=== PATIENT | female | born 1955 | race Caucasian/White ===

== ENCOUNTER → 2021-04-22 | Outpatient (CLI) | payer MEDICARE, OTHER ==
[~2021-04-22] MED LIST: REGADENOSON 0.4 MG/5 ML DISP.SYRIN. IV ONE
--- NOTE | 2021-04-22 12:00 | CARD ---
MR#: [id number] Date of Study: 04/22/2021 Ordering Physician: SHELDON PALMA, Referring Physician: Khalif SANCHEZ: Sammy Kessler [facility] APPROVED REPORT EXAM: Two-dimensional and M-mode echocardiogram with Doppler and color Doppler. Other Information Quality : FairHR: 80bpm Rhythm : NSR INDICATION Elevated troponin, Severe COPD RISK FACTORS Smoking 2D DIMENSIONS Left Atrium(2D)3.2 (1.6-4.0cm)IVSd1.0 (0.7-1.1cm) Aortic Root(2D)2.9 (2.0-3.7cm)LVDd4.6 (3.9-5.9cm) LVOT Diameter2.1 (1.8-2.4cm)PWd1.0 (0.7-1.1cm) LVDs2.5 (2.5-4.0cm)FS (%) 9.1 % SV6.2 mlLVEF(%)21.1 (>50%) Aortic Valve AoV Peak Jose A.145.4cm/sAoV VTI28.0cm AO Peak GR.8.5mmHgLVOT Peak Jose A.128.1cm/s LVOT VTI 22.40cmAO Mean GR.5mmHg KEKE (VMAX)2.39yj1OYF (VTI)2.76cm2 Mitral Valve MV E Mtejwfcx55.0cm/sMV DECEL [id number] MV A Adajznyr68.0cm/sMV XYD04hb E/A Ratio0.7MVA (PHT)3.02cm2 TDI E/Lateral E'7.8E/Medial E'8.4 Pulmonary Valve PV Peak Iadyurzi666.7cm/sPV Peak Grad.5mmHg Tricuspid Valve TR P. Eixdgbwz910oc/sTR Peak Gr.32mmHg Pulmonary Vein S1 Gqptsoqk38.2cm/sD2 Szdnhwky11.0cm/s LEFT VENTRICLE The left ventricle is normal size. There is normal left ventricular wall thickness. The left ventricu lar systolic function is normal and the ejection fraction is within normal range. EF 65% There is nor mal LV segmental wall motion. Transmitral Doppler flow pattern is Grade I-abnormal relaxation pattern . No left ventricle thrombus noted on this study. There is no ventricular septal defect visualized. T here is no left ventricular aneurysm. There is no mass noted in the left ventricle. RIGHT VENTRICLE The right ventricle is normal size. There is normal right ventricular wall thickness. The right ventr icular systolic function is normal. ATRIA The left atrium is mildly dilated. The right atrium size is normal. The interatrial septum is intact with no evidence for an atrial septal defect or patent foramen ovale as noted on 2-D or Doppler imagi ng. AORTIC VALVE The aortic valve is mildly sclerotic. Doppler and Color Flow revealed no significant aortic regurgita tion. There is no significant aortic valvular stenosis. There is no aortic valvular vegetation. MITRAL VALVE The mitral valve is normal in structure and function. There is no evidence of mitral valve prolapse. There is no mitral valve stenosis. Doppler and Color Flow revealed no mitral valve regurgitation note d. TRICUSPID VALVE The tricuspid valve is normal in structure and function. Doppler and Color Flow revealed trace tricus pid regurgitation. There is no tricuspid valve prolapse or vegetation. There is no tricuspid valve st enosis. PULMONIC VALVE Doppler and Color Flow revealed no pulmonic valvular regurgitation. There is no pulmonic valvular archana nosis. GREAT VESSELS The aortic root is normal in size. The ascending aorta is normal in size. The IVC is normal in size a nd collapses >50% with inspiration. PERICARDIAL EFFUSION There is no pleural effusion. There is no evidence of significant pericardial effusion. Critical Notification Critical Value: No <Conclusion> The left ventricular systolic function is normal and the ejection fraction is within normal range. EF 65% There is normal LV segmental wall motion. Signed by : Vickey Wynn, Electronically Approved : 04/22/2021 11:59:50
--- NOTE | 2021-04-23 11:04 | RAD ---
MR#: [id number] Date of Study: 04/22/2021 Ordering Physician: SHELDON PALMA, Referring Physician: JERO SANCHEZ Tech: RT Rocio (Jose lEias) (N) APPROVED REPORT Test Type: Pharmacological Stress Nurse/Tech: Claudia Gomez RN Test Indications: Dyspnea on Exertion Cardiac History: Hypertension,undergoing cancer treatment,COPD Medications: See Electronic Medical Record Medical History: See Electronic Medical Record Resting ECG: SR with BBB Resting Heart Rate: 80 bpm Resting Blood Pressure: 137/68mmHg Pretest Chest Pain: No chest pain Nurse/Tech Notes S1,S2 and lungs diminished throughout (patient wearing 3L n/c). Consent: The procedure was explained to the patient in lay terms. Informed consent was witnessed. Rivas eout was entered into [employer]. History and Stress Test performed by SAM Stoddard Pharm. Details Pharmacologic stress testing was performed using 0.4mg per 5ml of regadenoson given intravenously ove r 7-10 seconds. Stress Symptoms No chest pain or symptoms. POST EXERCISE Reason for Termination: Infusion complete Target HR: No Max HR: 95 bpm 72% of Maximum Predicted HR: 131 bpm Max Blood Pressure: 144/68mmHg Blood Pressure response to exercise: Normal blood pressure response during stress. Heart Rate response to exercise: WNL Chest Pain: No. Arrhythmia: No. ST Change: No. INTERPRETATION Stress EKG Conclusion: No evidence of stress induced EKG changes. Imaging Protocol IMAGE PROTOCOL: Rest Tc-99m/stress Tc-99m 1 day Rest: Stress: Viability: Radiopharm.Tc99m AjlcbhnxoPb26x Sestamibi Xujn54nRn 31mCi Duration 13min. 13min. Img Date 04/22/2021 04/22/2021 Inj-Img Fvap95nsl. 60min. Rest Admin Site:IV - Right AntecubitalAdministrator:SAM Stoddard Stress Admin Site: IV - Right AntecubitalAdministrator: SAM Stoddard STRESS DATA End Diast. Vol.69.0mlLVEDV index BSA34.0ml End Syst. Vol.8.0mlLVESV index BSA4.0ml Myocardial Edsv495.0gEject. Uowzqfgm28.0% Stress Scores Regional WT1.00Summed WT6.00 Regional WM0.00Summed WM0.00 The rest and stress images show normal perfusion, normal contraction and thickening. LV Perf. Quant 17 Seg. SSS0.00 17 Seg. SRS0.00 17 Seg. SDS0.00 Stress Defect Extent (% LAD)0.00Rest Defect Extent (% LAD)0.00Rev. Defect Extent (% LAD)0.00 Stress Defect Extent (% LCX) 0.00Rest Defect Extent (% LCX)0.00Rev. Defect Extent (% LCX)0.00 Stress Defect Extent (% RCA)0.00Rest Defect Extent (% RCA)0.00Rev. Defect Extent (% RCA)0.00 Stress Defect Extent (% CHARLIE)0.00Rest Defect Extent (% CHARLIE)0.00Rev. Defect Extent (% CHARLIE)0.00 Other Information Quality:Fair Risk Assessment: Low Risk Conclusion 1. No evidence of EKG changes with stress testing. 2. Normal perfusion at stress/rest. 3. Low risk study. 4. EF > 60%. Signed by : Vickey Wynn, Electronically Approved : 04/23/2021 11:03:50
== END ==
LOC: ECHO 08:39
PROVIDERS: ATTEND Internal Medicine Cardiovascular Disease
DX: I35.8 Other nonrheumatic aortic valve disorders (principal); R06.02 Shortness of breath
CPT/HCPCS: 78452; 93017; 93306; A9500; J2785